=== PATIENT | male | born 1955 | race Asian ===

== ENCOUNTER 2017-02-21 06:08 | Day surgery (SDC) | payer OTHER ==
[~2017-02-21] VITALS: Ht 167.6 cm; Wt 65.0 kg
[2017-02-21] MEDS ORDERED: SODIUM CHLORIDE 0.9% 1,000 ML IV ONE ×2 (06:15→06:30)
[2017-02-21] MEDS ORDERED: MIDAZOLAM HCL 2 MG/2 ML VIAL ONE (07:16)
[2017-02-21] MEDS ORDERED: FentaNYL CITRATE-PF 100 MCG/2 ML VIAL ONE (07:17)
[2017-02-21] MEDS ORDERED: MethylPREDNISolone SOD SUCC 125 MG/2 ML VIAL IVP ONE (08:45)
[2017-02-21] MEDS ORDERED: MethylPREDNISolone SOD SUCC 125 MG/2 ML VIAL ONE (09:27)
[2017-02-21] MEDS ORDERED: TERA5 PO (09:50)
[2017-02-21] MEDS ORDERED: [UNRECOGNIZED DRUG - OTHER] PO (09:50)
[2017-02-21] MEDS ORDERED: SIMV-260 PO (09:50)
[2017-02-21] MEDS ORDERED: TAMS0.4C32 PO (09:50)
[2017-02-21] MEDS ORDERED: TYLENOL#3 PO (09:51)
[2017-02-21] MEDS ORDERED: LIDOCAINE HCL 2% 30 ML JELLY TP ONE (17:02)
[2017-02-21] MEDS ORDERED: LIDOCAINE HCL 4% 50 ML SOLUTION TP ONE (17:02)
[2017-02-21] MEDS ORDERED: ALBUTEROL SULFATE 2.5 MG/0.5 ML NEB SOLUTION NEB ONE (17:02)
[2017-02-21] MEDS ORDERED: BENZOCAINE 20% 50 MCG/SPRAY 57 GM TP ONE (17:02)
[2017-02-21] MEDS ORDERED: OXYGEN THERAPY IH SCH (20:00)
== END 2017-02-21 10:25 | disposition home or self-care (01) ==
LOC: SURGERY 06:08
PROVIDERS: ATTEND Internal Medicine Critical Care Medicine
DX: J38.4 Edema of larynx (principal); B37.0 Candidal stomatitis; E78.00 Pure hypercholesterolemia, unspecified; M25.511 Pain in right shoulder; M54.9 Dorsalgia, unspecified; F17.210 Nicotine dependence, cigarettes, uncomplicated; Z72.89 Other problems related to lifestyle
CPT/HCPCS: 31623; 31624; 71010; 87015 ×2; 87070; 87101; 87147; 87205; 87220; 88108; 88312; 93005; J2250; J2930; J3010; J7030